=== PATIENT | female | born 1935 | race Caucasian/White ===

== ENCOUNTER → 2017-06-22 | Outpatient (CLI) | payer MEDICARE | LOC: FS 11:16 | PROVIDERS: ATTEND Internal Medicine Hematology & Oncology | DX: Z08 Encounter for follow-up examination after completed treatment for malignant neoplasm (principal); Z85.3 Personal history of malignant neoplasm of breast; N18.3 Chronic kidney disease, stage 3 (moderate); Z90.12 Acquired absence of left breast and nipple; Z79.899 Other long term (current) drug therapy | CPT/HCPCS: 99213 ==

== ENCOUNTER 2018-06-21 10:20 | Outpatient (RCR) | payer MEDICARE | END 2018-07-15 | disposition home or self-care (01) | LOC: ONC 10:20 | PROVIDERS: ATTEND Internal Medicine Hematology & Oncology | DX: Z08 Encounter for follow-up examination after completed treatment for malignant neoplasm (principal); Z85.3 Personal history of malignant neoplasm of breast; E11.22 Type 2 diabetes mellitus with diabetic chronic kidney disease; N18.3 Chronic kidney disease, stage 3 (moderate); I25.10 Atherosclerotic heart disease of native coronary artery without angina pectoris; E03.9 Hypothyroidism, unspecified; E78.00 Pure hypercholesterolemia, unspecified; J45.909 Unspecified asthma, uncomplicated; Z90.12 Acquired absence of left breast and nipple; Z92.21 Personal history of antineoplastic chemotherapy; Z79.02 Long term (current) use of antithrombotics/antiplatelets; Z79.82 Long term (current) use of aspirin; Z79.899 Other long term (current) drug therapy; Z95.5 Presence of coronary angioplasty implant and graft | CPT/HCPCS: 99213 ==

== ENCOUNTER → 2019-06-23 | Outpatient (CLI) | payer MEDICARE ==
[2019-06-23 12:47] LABS: BASOPHILS % (AUTO) 1 % (0-10); EOSINOPHILS # (AUTO) 0.3 10^3/uL (0.0-0.3); EOSINOPHILS % (AUTO) 5 % (0-10); HEMATOCRIT 36 % (35-52); HEMOGLOBIN 11.7 G/DL (11.5-16.0); LYMPHOCYTES # (AUTO) 1.1 X 10^3 (1.0-4.0); LYMPHOCYTES % (AUTO) 17 % (12-44); MEAN CORPUSCULAR HEMOGLOBIN 28 PG (25-34); MEAN CORPUSCULAR HGB CONC 33 G/DL (32-36); MEAN CORPUSCULAR VOLUME 87 FL (80-99); MEAN PLATELET VOLUME 9.6 FL (7.4-10.4); MONOCYTES # (AUTO) 0.5 X 10^3 (0.0-1.0); MONOCYTES % (AUTO) 7 % (0-12); NEUTROPHILS # (AUTO) 4.4 X 10^3 (1.8-7.8); NEUTROPHILS % (AUTO) 70 % (42-75); PLATELET COUNT 269 10^3/uL (130-400); RED CELL DISTRIBUTION WIDTH 15.5 % (10.0-14.5); WHITE BLOOD COUNT 6.2 10^3/uL (4.3-11.0)
[2019-06-23 13:09] LABS: ALBUMIN 3.9 GM/DL (3.2-4.5); BILIRUBIN,TOTAL 0.3 MG/DL (0.1-1.0); CALCIUM 9.1 MG/DL (8.5-10.1); CREATININE SERUM 1.23 MG/DL (0.60-1.30)
== END ==
LOC: EDSTATUS 08-15 11:03 → LAB 12:31
PROVIDERS: ATTEND Internal Medicine Hematology & Oncology
DX: C50.919 Malignant neoplasm of unspecified site of unspecified female breast (principal)
CPT/HCPCS: 36415; 80053; 85025

== ENCOUNTER → 2019-06-23 | Outpatient (CLI) | payer MEDICARE | LOC: ONC 12:55 | PROVIDERS: ATTEND Internal Medicine Hematology & Oncology | DX: Z08 Encounter for follow-up examination after completed treatment for malignant neoplasm (principal); Z85.3 Personal history of malignant neoplasm of breast; E11.22 Type 2 diabetes mellitus with diabetic chronic kidney disease; N18.3 Chronic kidney disease, stage 3 (moderate); I25.10 Atherosclerotic heart disease of native coronary artery without angina pectoris; E03.9 Hypothyroidism, unspecified; E78.00 Pure hypercholesterolemia, unspecified; J45.909 Unspecified asthma, uncomplicated; Z90.12 Acquired absence of left breast and nipple; Z92.21 Personal history of antineoplastic chemotherapy; Z79.02 Long term (current) use of antithrombotics/antiplatelets; Z79.82 Long term (current) use of aspirin; Z79.899 Other long term (current) drug therapy; Z95.5 Presence of coronary angioplasty implant and graft | CPT/HCPCS: 99213 ==

== ENCOUNTER 2019-08-26 13:20 | Emergency (ER) | payer MEDICARE ==
[~2019-08-26] VITALS: Ht 160 cm; Wt 77.0 kg
[2019-08-26] MEDS ORDERED: TETANUS,DIPTH,PERTUSS P/F (BOOSTRIX) 0.5 ML VIAL IM ONE (14:15)
--- NOTE | 2019-08-26 14:25 | ED Lower Extremity ---
General Chief Complaint: Lower Extremity Stated Complaint: R ANKLE PAIN Nursing Triage Note: AMBULATE TO TRIAGE WITH C/O RIGHT ANKLE PAIN. PT FELL COMING OUT OF THE CASINO AND TWISTED ANKLE. PT ALSO HAS ABRASIONS TO BOTH THUMBS. Nursing Sepsis Screen: No Definite Risk Source: patient Exam Limitations: no limitations History of Present Illness Date Seen by Provider: Aug 26, 2019 Time Seen by Provider: 14:22 Initial Comments To ER with right lateral ankle pain. She twisted the ankle causing a fall while coming [place] of the [place]. She has an abrasion to the pad of each thumb. Tetanus status is unknown. No other injury did not hit her head. Onset: just prior to arrival Severity: moderate Pain/Injury Location: right ankle Method of Injury: fell Modifying Factors: Worse With Movement Allergies and Home Medications Allergies Coded Allergies: No Known Drug Allergies (Unverified , 08/26/19) Patient Home Medication List Home Medication List Reviewed: Yes Review of Systems Constitutional: see HPI EENTM: see HPI Respiratory: no symptoms reported Cardiovascular: no symptoms reported Genitourinary: no symptoms reported Musculoskeletal: see HPI Skin: no symptoms reported Psychiatric/Neurological: No Symptoms Reported Past Hootfxa-Srfcff-Zsozmz Hx Patient Social History Alcohol Use: Denies Use Recreational Drug Use: No Smoking Status: Former Smoker Type Used: Cigars Former Smoker, Quit: Aug 24, 1999 2nd Hand Smoke Exposure: No Recent Foreign Travel: No Contact w/Someone Who Travel: No Recent Infectious Disease Expo: No Recent Hopitalizations: No Physical Abuse: No Sexual Abuse: No Mistreated: No Fear: No Seasonal Allergies Seasonal Allergies: No Past Medical History Surgeries: Yes (BREAST REMOVED DUE TO CANCER) Adenoidectomy, Thyroidectomy, Tonsillectomy Respiratory: Yes Asthma Cardiac: Yes Coronary Artery Disease, High Cholesterol, Hypertension Neurological: No : No Genitourinary: No Gastrointestinal: Yes Polyps Musculoskeletal: No Endocrine: Yes Diabetes, Non-Insulin dep HEENT: No Loss of Vision: Denies Hearing Impairment: Denies Cancer: Yes Breast Did You Recieve Any Treatments: Yes What Type of Treatment Did You: Chemotherapy LEFT MASTECTOMY Psychosocial: No Integumentary: No Blood Disorders: No Physical Exam Vital Signs Vital Signs - First Documented 08/26/19 13:33 Temp 36.5 Pulse 67 B/P (MAP) 173/87 (115) Pulse Ox 99 O2 Delivery Room Air Capillary Refill : Less Than 3 Seconds Height, Weight, BMI Height: '" Weight: lbs. oz. kg; 30.00 BMI Method: General Appearance: WD/WN, no apparent distress Respiratory: no respiratory distress, no accessory muscle use Hips: bilateral hip non-tender, bilateral hip normal inspection, bilateral hip normal range of motion Legs: bilateral leg non-tender, bilateral leg normal inspection, bilateral leg normal range of motion Knees: bilateral knee non-tender, bilateral knee normal inspection, bilateral knee normal range of motion Ankles: right ankle pain, right ankle soft tissue tenderness, right ankle swelling (over the lateral malleolus.) Feet: bilateral foot non-tender, bilateral foot normal inspection, bilateral foot normal range of motion Neurologic/Psychiatric: alert, normal mood/affect, oriented x 3 Skin: normal color, warm/dry No pain or tenderness along the fourth or fifth metatarsals only pain over the lateral malleolus. No ecchymosis. Small superficial abrasion over the pad of the thumb, full flexion and extension abilities at the IP joint bilaterally. Progress/Results/Core Measures Results/Orders My Orders Orders - SUSANNA MIR APRN Dipht,Pertuss(Acell),Tet Adult (Boostrix (08/26/19 14:15) Ankle, Right, 3 Views (08/26/19 14:02) Medications Given in ED Current Medications Medications Dose Ordered Sig/Orestes Route Start Time Stop Time Status Last Admin Dose Admin Diphtheria/ Tetanus/Acell Pertussis 0.5 ml ONCE ONCE IM 08/26/19 14:15 08/26/19 14:16 DC 08/26/19 14:21 0.5 ML Vital Signs/I&O 08/26/19 13:33 Temp 36.5 Pulse 67 B/P (MAP) 173/87 (115) Pulse Ox 99 O2 Delivery Room Air Blood Pressure Mean: 115 Departure Communication (Admissions) Stirrup splint to right ankle Impression Primary Impression: Sprain and strain of ankle Additional Impressions: Abrasion Fracture of distal fibula Disposition: HOME, SELF-CARE Condition: Stable Departure-Patient Inst. Decision time for Depature: 14:24 Referrals: GREG LION MD (PCP/Family) Primary Care Physician Patient Instructions: Ankle Sprain (DC) Add. Discharge Instructions: 1. Return to ER for any concerns 2. Go home and elevate the foot as much as possible for the rest of today. Ice pack to the area Tylenol and ibuprofen for pain control. SUSANNA MIR APRN Aug 26, 2019 14:25
--- NOTE | 2019-08-26 14:43 | Diagnostic Imaging Report ---
Clinical indications: Patient tripped today. Patient's pain and swelling to right ankle. Exam: X-ray of the right ankle, 3 views. Comparison: None. Findings: There is a nondisplaced fracture involving the distal aspect of the lateral malleolus. There are calcifications seen distal to the lateral malleolus which may be acute or chronic. There is swelling adjacent to the lateral malleolus. There is a chronic calcification seen distal to the medial malleolar region. Ankle mortise and syndesmotic joints unremarkable. Hypertrophic calcaneal spurs are noted. Impression: 1: There is a nondisplaced fracture of the lateral malleolus. There is a small calcification seen distal to the lateral malleolus which may be chronic or acute. There is soft tissue swelling adjacent to the ankle. 2: There is a small chronic appearing calcification seen distal to the medial malleolus. Dictated by: Dictated on workstation # [id number]
[2019-08-26 14:58] VITALS: BP 119/70
== END 2019-08-26 14:58 | disposition home or self-care (01) ==
LOC: EDUNIT# 13:20 → ER 13:22
DX: S82.831A Other fracture of upper and lower end of right fibula, initial encounter for closed fracture (principal); S93.401A Sprain of unspecified ligament of right ankle, initial encounter; S60.312A Abrasion of left thumb, initial encounter; S60.311A Abrasion of right thumb, initial encounter; I10 Essential (primary) hypertension; E11.9 Type 2 diabetes mellitus without complications; I25.10 Atherosclerotic heart disease of native coronary artery without angina pectoris; E78.00 Pure hypercholesterolemia, unspecified; J45.909 Unspecified asthma, uncomplicated; Z85.3 Personal history of malignant neoplasm of breast; Z90.12 Acquired absence of left breast and nipple; Z87.891 Personal history of nicotine dependence; Z90.89 Acquired absence of other organs; W01.0XXA Fall on same level from slipping, tripping and stumbling without subsequent striking against object, initial encounter; Y92.59 Other trade areas as the place of occurrence of the external cause
CPT/HCPCS: 73610; 90471; 90715

== ENCOUNTER → 2020-07-17 | Outpatient (CLI) | payer MEDICARE ==
[2020-07-17 10:41] LABS: BASOPHILS % (AUTO) 1 % (0-10); EOSINOPHILS # (AUTO) 0.2 10^3/uL (0.0-0.3); EOSINOPHILS % (AUTO) 4 % (0-10); HEMATOCRIT 39 % (35-52); HEMOGLOBIN 12.4 G/DL (11.5-16.0); LYMPHOCYTES # (AUTO) 1.2 X 10^3 (1.0-4.0); LYMPHOCYTES % (AUTO) 21 % (12-44); MEAN CORPUSCULAR HEMOGLOBIN 29 PG (25-34); MEAN CORPUSCULAR HGB CONC 32 G/DL (32-36); MEAN CORPUSCULAR VOLUME 91 FL (80-99); MEAN PLATELET VOLUME 10.8 FL (7.4-10.4); MONOCYTES # (AUTO) 0.4 X 10^3 (0.0-1.0); MONOCYTES % (AUTO) 7 % (0-12); NEUTROPHILS # (AUTO) 3.9 X 10^3 (1.8-7.8); NEUTROPHILS % (AUTO) 68 % (42-75); PLATELET COUNT 229 10^3/uL (130-400); WHITE BLOOD COUNT 5.8 10^3/uL (4.3-11.0)
[2020-07-17 11:09] LABS: ALBUMIN 4.1 GM/DL (3.2-4.5); BILIRUBIN,TOTAL 0.5 MG/DL (0.1-1.0); CALCIUM 9.5 MG/DL (8.5-10.1); CREATININE SERUM 1.36 MG/DL (0.60-1.30); POTASSIUM 4.5 MMOL/L (3.6-5.0)
== END ==
LOC: ONC 10:24
PROVIDERS: ATTEND Internal Medicine Hematology & Oncology
DX: C50.912 Malignant neoplasm of unspecified site of left female breast (principal); I25.810 Atherosclerosis of coronary artery bypass graft(s) without angina pectoris; E04.8 Other specified nontoxic goiter; N18.2 Chronic kidney disease, stage 2 (mild); I82.621 Acute embolism and thrombosis of deep veins of right upper extremity; Z95.1 Presence of aortocoronary bypass graft; Z92.21 Personal history of antineoplastic chemotherapy; Z90.12 Acquired absence of left breast and nipple; Z17.0 Estrogen receptor positive status [ER+]; Z79.01 Long term (current) use of anticoagulants
CPT/HCPCS: 80053; 85025; G0463; 99213

== ENCOUNTER → 2021-05-27 | Outpatient (CLI) | payer MEDICARE ==
--- NOTE | 2021-05-27 17:17 | Diagnostic Imaging Report ---
INDICATION: Pulmonary nodules. TECHNIQUE: Serum blood glucose level at the time of injection is 152 mg/dL. Patient was administered 13.6 mCi F-18 FDG intravenously in the right hand and PET imaging was performed from the top of the skull to mid thighs. Noncontrast CT was also performed for attenuation correction and anatomic correlation. COMPARISON: Comparison is made with prior PET study from 12/17/2015. FINDINGS: There is symmetric activity throughout the brain. Physiologic activity in the soft tissues of the neck is noted. No mediastinal or hilar hypermetabolism is identified. A noncalcified mass in the left lower lobe is noted. This shows low-level activity less than 3 however the lesion has increased in size, now measuring 18 mm compared with 11 mm on study from 2016. Physiologic activity throughout the GI and tracts of the abdomen and pelvis is noted. There is diffuse colonic diverticulosis present but no suspicious hypermetabolism. IMPRESSION: Enlarging mass in the left lower lobe when compared with exam from 2016. This shows low-level activity for FDG but is suspicious for small lung neoplasm due to increasing size. Lesion would likely be amenable to percutaneous biopsy. Dictated by: Dictated on workstation # [id number]
== END ==
LOC: RAD 12:00
PROVIDERS: ATTEND Internal Medicine Hematology & Oncology
DX: R91.8 Other nonspecific abnormal finding of lung field (principal)
CPT/HCPCS: 78815; A9552

== ENCOUNTER → 2021-05-29 | Outpatient (CLI) | payer MEDICARE | LOC: ONC 09:22 | PROVIDERS: ATTEND Internal Medicine Hematology & Oncology | DX: C50.912 Malignant neoplasm of unspecified site of left female breast (principal); I25.10 Atherosclerotic heart disease of native coronary artery without angina pectoris; E11.22 Type 2 diabetes mellitus with diabetic chronic kidney disease; N18.30 Chronic kidney disease, stage 3 unspecified; E78.00 Pure hypercholesterolemia, unspecified; E03.9 Hypothyroidism, unspecified; R91.8 Other nonspecific abnormal finding of lung field; Z90.12 Acquired absence of left breast and nipple; Z98.890 Other specified postprocedural states; Z92.21 Personal history of antineoplastic chemotherapy | CPT/HCPCS: 99213 ==

== ENCOUNTER → 2021-06-09 | Outpatient (CLI) | payer MEDICARE ==
[~2021-06-09] MED LIST: ALB0.5V INH; ATOR20TA66 PO; CA C1TAB75 PO; CETI10TA17 PO; FERR324T4 PO; FURO40TA4 PO; GLIM2TAB4 PO; LEVO100C4 PO; LEVO75CA5 PO; METO-333 PO; NITR0.4T39 SL; PANT40TA52 PO; RIVA20TA PO
[2021-06-09 09:01] LABS: HEMATOCRIT 42 % (35-52); HEMOGLOBIN 13.7 g/dL (11.5-16.0); MEAN CORPUSCULAR HEMOGLOBIN 32 pg (25-34); MEAN CORPUSCULAR HGB CONC 33 g/dL (32-36); MEAN CORPUSCULAR VOLUME 98 fL (80-99); MEAN PLATELET VOLUME 10.7 fL (9.0-12.2); PLATELET COUNT 203 10^3/uL (130-400); WHITE BLOOD COUNT 4.9 10^3/uL (4.3-11.0)
[2021-06-09 09:17] LABS: INR 0.9 (0.8-1.4)
== END ==
LOC: LAB 08:45
PROVIDERS: ATTEND Internal Medicine Hematology & Oncology
DX: R91.1 Solitary pulmonary nodule (principal)
CPT/HCPCS: 36415; 82947; 85027; 85610; 85730

== ENCOUNTER 2021-06-16 11:06 | Outpatient (CLI) | payer MEDICARE ==
[2021-06-09 08:35] VITALS: BP 151/85
[2021-06-09 09:15] VITALS: BP 151/85
[~2021-06-16] VITALS: Ht 162.5 cm; Wt 78.6 kg
[2021-06-16] VITALS (16 sets, daily range): BP systolic 140–165; BP diastolic 73–98
[~2021-06-16 11:06] MED LIST changes: +LIDOCAINE 1% INJ 20 ML 20 ML VIAL INJ ONE; +MIDAZOLAM 2 MG/2 ML (VERSED) VIAL IVP ONE; +NS IV 1000 ML 1,000 ML IV STA; +fentaNYL INJ 100 MCG/2 ML AMP IVP ONE
[2021-06-16] MEDS ORDERED: NS IV 1000 ML 1,000 ML IV STA (11:11)
[2021-06-16] MEDS ORDERED: fentaNYL INJ 100 MCG/2 ML AMP IVP ONE (11:15)
[2021-06-16] MEDS ORDERED: LIDOCAINE 1% INJ 20 ML 20 ML VIAL INJ ONE (11:15)
[2021-06-16] MEDS ORDERED: MIDAZOLAM 2 MG/2 ML (VERSED) VIAL IVP ONE (11:15)
[2021-06-16 11:48] LABS: BASOPHILS % (AUTO) 1 % (0-10); EOSINOPHILS # (AUTO) 0.2 10^3/uL (0.0-0.3); EOSINOPHILS % (AUTO) 4 % (0-10); HEMATOCRIT 42 % (35-52); HEMOGLOBIN 13.9 g/dL (11.5-16.0); LYMPHOCYTES # (AUTO) 0.9 10^3/uL (1.0-4.0); LYMPHOCYTES % (AUTO) 19 % (12-44); MEAN CORPUSCULAR HEMOGLOBIN 32 pg (25-34); MEAN CORPUSCULAR HGB CONC 33 g/dL (32-36); MEAN CORPUSCULAR VOLUME 96 fL (80-99); MEAN PLATELET VOLUME 10.8 fL (9.0-12.2); MONOCYTES # (AUTO) 0.4 10^3/uL (0.0-1.0); MONOCYTES % (AUTO) 9 % (0-12); NEUTROPHILS # (AUTO) 3.1 10^3/uL (1.8-7.8); NEUTROPHILS % (AUTO) 68 % (42-75); PLATELET COUNT 203 10^3/uL (130-400); WHITE BLOOD COUNT 4.6 10^3/uL (4.3-11.0)
[2021-06-16 11:59] LABS: PROTHROMBIN TIME PATIENT 13.6 SEC (12.2-14.7)
--- NOTE | 2021-06-16 14:07 | Diagnostic Imaging Report ---
INDICATION: Left lung nodule, status post CT-guided biopsy. TIME OF EXAM: 1:59 PM. COMPARISON: Correlation is made with the prior chest from 10/26/2010. FINDINGS: There is a very small left apical pneumothorax measuring a thickness of approximately 19 mm. The lungs are clear. No significant effusion is seen. There are changes of median sternotomy. IMPRESSION: Small left apical pneumothorax, status post left lung biopsy. A repeat chest x-ray will be performed in 2 hours to confirm stability. Dictated by: Dictated on workstation # [id number]
[2021-06-16] MEDS ORDERED: HYDROcodone/APAP 5 MG/325 MG (LORTAB) TAB PO PRN (14:15)
--- NOTE | 2021-06-16 14:18 | Diagnostic Imaging Report ---
INDICATION: Left lung mass. Patient presents for CT-guided biopsy. TECHNIQUE: All CT scans use one or more of the following dose optimizing techniques: automated exposure control, MA and/or KvP adjustment based on patient size and exam type or iterative reconstruction. Patient brought to the CT suite placed on table right-sided antecubitus position. Axial imaging through the chest was performed. The lower left posterior hemithorax was prepped and draped usual sterile fashion. Small amount of 1% lidocaine was utilized for local anesthesia. Study was performed utilizing conscious sedation with radiology nursing and constant patient monitoring. Patient was given total of 50 mg of fentanyl intravenously and 1 mg of Versed intravenously. Total procedure time was approximately 30 minutes. 18-gauge coaxial Temno needle was positioned along the upper margin of the lesion. Numerous attempts are made to biopsy it more centrally however the lesion was very difficult to access due to position immediately deep to a rib. Several core biopsies were obtained along the margin of the lesion with 18-gauge Temno needle. Needle was withdrawn and hemostasis was obtained. Images post procedure demonstrated a small amount of hemothorax as well as a small pneumothorax. Chest radiographs will be obtained to confirm stability. Patient tolerated the procedure well and left the department in stable condition. IMPRESSION: CT-guided biopsy of left lower lobe pulmonary mass, as described above. Conscious sedation was utilized. Pathology results are currently pending. Dictated by: Dictated on workstation # [id number]
--- NOTE | 2021-06-16 16:38 | Diagnostic Imaging Report ---
INDICATION: Left lung biopsy. TIME OF EXAM: 3:44 PM CORRELATION is made with prior chest from earlier same day. Changes of median sternotomy are noted. There is a small left apical pneumothorax, stable since earlier today. Lungs are clear. There is no effusion. IMPRESSION: Stable left apical pneumothorax when compared with earlier today. Dictated by: Dictated on workstation # [id number]
--- NOTE | 2021-06-16 16:38 | Pre-Op Note & Conscious Sedat ---
Pre-Operative Progress Note H&P Reviewed The H&P was reviewed, patient examined and no changes noted. Date H&P Reviewed: Jun 16, 2021 Time H&P Reviewed: 12:00 Pre-Op Diagnosis: lung nodule Conscious Sedation Pre-Proced Time 12:00 ASA Score 2 For ASA 3 and 4: Consider anesthesia and medical clearance. Also, for patients with a history of failed moderate sedation consider anesthesia. Airway Lungs Heart ASA score ASA 1: a normal healthy patient ASA 2: a patient with a mild systemic disease (mid diabetes, controlled hypertension, obesity ASA 3: a patient with a severe systemic disease that limits activity (angina, COPD, prior Myocardial infarction) ASA 4: a patient with an incapacitating disease that is a constant threat to life (CHF, renal failure) ASA 5: a moribund patient not expected to survive 24 hrs. (ruptured aneurysm) ASA 6: a declared brain- patient whose organs are being harvested. For emergent operations, add the letter E after the classification Mallampati Classification Grade 2 Sedation Plan Analgesia, Amnesia, Plan communicated to team members, Discussed options with patient/fam, Discussed risks with patient/fam The patient is an appropriate candidate to undergo the planned procedure, sedation, and anesthesia. The patient immediately re-assessed prior to indication. SALAZAR VILLARREAL MD Jun 16, 2021 16:38
== END 2021-06-16 16:10 | disposition home or self-care (01) ==
LOC: SDC 11:06
PROVIDERS: ATTEND Internal Medicine Hematology & Oncology
DX: C50.912 Malignant neoplasm of unspecified site of left female breast (principal); R91.1 Solitary pulmonary nodule; R79.1 Abnormal coagulation profile; Z90.12 Acquired absence of left breast and nipple; Z92.21 Personal history of antineoplastic chemotherapy
CPT/HCPCS: 36415; 71045; 77012; 82947; 85025; 85027; 85610; 85730; 88305; 88342; 88344; 99156; 99157

== ENCOUNTER 2021-06-26 09:38 | Outpatient (RCR) | payer MEDICARE ==
[~2021-06-26 09:38] MED LIST changes: -LIDOCAINE 1% INJ 20 ML 20 ML VIAL INJ ONE; -MIDAZOLAM 2 MG/2 ML (VERSED) VIAL IVP ONE; -NS IV 1000 ML 1,000 ML IV STA; -fentaNYL INJ 100 MCG/2 ML AMP IVP ONE
== END 2021-09-24 | disposition home or self-care (01) ==
LOC: ONC 09:38
PROVIDERS: ATTEND Internal Medicine Hematology & Oncology
DX: C50.912 Malignant neoplasm of unspecified site of left female breast (principal); E04.9 Nontoxic goiter, unspecified; R91.8 Other nonspecific abnormal finding of lung field; E11.9 Type 2 diabetes mellitus without complications; N18.30 Chronic kidney disease, stage 3 unspecified; E78.00 Pure hypercholesterolemia, unspecified; Z92.21 Personal history of antineoplastic chemotherapy
CPT/HCPCS: 99213

== ENCOUNTER 2023-04-10 12:01 | Emergency (ER) | payer MEDICARE ==
[~2023-04-10] VITALS: Ht 160 cm; Wt 72.5 kg
[2023-04-10 12:57] LABS: BASOPHILS % (AUTO) 0 % (0-10); EOSINOPHILS % (AUTO) 0 % (0-10); HEMATOCRIT 37 % (35-52); HEMOGLOBIN 12.1 g/dL (11.5-16.0); LYMPHOCYTES # (AUTO) 0.3 10^3/uL (1.0-4.0); LYMPHOCYTES % (AUTO) 2 % (12-44); MEAN CORPUSCULAR HEMOGLOBIN 30 pg (25-34); MEAN CORPUSCULAR HGB CONC 33 g/dL (32-36); MEAN CORPUSCULAR VOLUME 90 fL (80-99); MEAN PLATELET VOLUME 9.6 fL (9.0-12.2); MONOCYTES # (AUTO) 0.3 10^3/uL (0.0-1.0); MONOCYTES % (AUTO) 3 % (0-12); NEUTROPHILS # (AUTO) 10.2 10^3/uL (1.8-7.8); NEUTROPHILS % (AUTO) 94 % (42-75); PLATELET COUNT 400 10^3/uL (130-400); WHITE BLOOD COUNT 10.9 10^3/uL (4.3-11.0)
--- NOTE | 2023-04-10 12:58 | ED Respiratory ---
General Chief Complaint: Respiratory Problems Stated Complaint: SOA Nursing Triage Note: PT AMB TO [facility] 9 WITH GRANDDAUGHTER WITH COMPLAINT OF SOA AND LEFT SIDE RIB PAIN. HAS TAKEN MULTIPLE ROUNDS OF ANTIBIOTICS FOR PNEUMONIA. WAS RECENTLY ADMITTED TO [facility] OVERNIGHT AND IS NOT FEELING ANY BETTER. HR HAS BEEN HIGH AT HOME AND SHE HAS NOT REQUIRED HER BLOOD PRESSURE MEDS. WAS TOLD SHE HAS A LUNG NODULE. HX OF BREAST CANCER. Source: patient, family Exam Limitations: no limitations History of Present Illness Date Seen by Provider: April 10, 2023 Time Seen by Provider: 12:32 Initial Comments 87-year-old female presents to the ER with complaints of shortness of air, weakness, and right lower rib pain for the last 3 weeks. She was seen by her primary care provider who did a chest and abdomen x-ray and told her she had a lot of gas. He started her on MiraLAX, states she has been having normal bowel movements since then. She was still not feeling well so went to [facility] 2 weeks ago and was diagnosed with pneumonia and discharged with antibiotics. She was seen there again on 04/03 and admitted for pneumonia and IV antibiotics. She was discharged the following day and saw her primary care provider. He wanted her to be on steroids instead of antibiotics. Patient reports she has been taking t he steroid, but she did not start out at the recommended dose of 40 mg a day for 3 days. She started out with 30 mg a day for 3 days, is currently on 20 mg a day which she has taken for 2 days now. Correa found a pulmonary nodule during her visit, she has since had a PET scan, and is supposed to have a biopsy this Wednesday. Patient states she does not feel well, and does not want to go to this appointment due to not feeling well. She complains of weakness, no energy, she reports she cannot even walk to the bathroom without getting fatigued and short of breath. She reports that she has completed 4 rounds of antibiotics for this pneumonia. She states the pain in her right side initially started lower moved up to the right ribs and into her left shoulder, states the pain is only located in her right lower ribs at this time. Right lower ribs are tender to palpation. Patient denies any injury to her ribs. Past medical history includes coronary artery disease, hypertension, diabetes, hypothyroidism, breast cancer, pleural effusion. She has had 4 bypasses, and mastectomy. Her cancer treatment was in 1998. Allergies and Home Medications Allergies Coded Allergies: ciprofloxacin (Verified Allergy, Unknown, 04/10/23) iodine (Verified Allergy, Unknown, 04/10/23) levofloxacin (Verified Allergy, Unknown, 04/10/23) Patient Home Medication List Home Medication List Reviewed: Yes Albuterol Sulfate (Albuterol Sulfate) 2.5 Mg/0.5 Ml Vial.neb, 2.5 MG INH Q6H, (Reported) Entered as Reported by: CHINO ROTH on 06/09/21945 Atorvastatin Calcium (Atorvastatin Calcium) 20 Mg Tablet, 20 MG PO HS, (Reported) Entered as Reported by: CHINO ROTH on 06/09/21945 Ca Carbonate/Vitamin D3/Vit K (Calcium + D Soft Chewable Tab) 1 Each Tab.chew, 1 EACH PO BID, (Reported) Entered as Reported by: CHINO ROTH on 06/09/21945 Cetirizine HCl (Cetirizine HCl) 10 Mg Tablet, 10 MG PO DAILY, (Reported) Entered as Reported by: CHINO ROTH on 06/09/21945 Ferrous Sulfate (Ferrous Sulfate) 324 Mg Tablet.dr, 324 MG PO BID, (Reported) Entered as Reported by: CHINO ROTH on 06/09/21945 Furosemide (Furosemide) 40 Mg Tablet, 40 MG PO DAILY, (Reported) Entered as Reported by: CHINO ROTH on 06/09/21945 Furosemide (Lasix) 40 Mg Tablet, 40 MG PO DAILY Prescribed by: Lily Knapp on 04/10/23 1449 Glimepiride (Glimepiride) 2 Mg Tablet, 2 MG PO BID, (Reported) Entered as Reported by: CHINO ROTH on 06/09/21945 Levothyroxine Sodium (Levothyroxine) 100 Mcg Capsule, 100 MCG PO UD, (Reported) Entered as Reported by: CHINO ROTH on 06/09/21945 Levothyroxine Sodium (Levothyroxine) 75 Mcg Capsule, 75 MCG PO UD, (Reported) Entered as Reported by: CHINO ROTH on 06/09/21945 Metoprolol Tartrate (Metoprolol Tartrate) 25 Mg Tablet, 25 MG PO BID, (Reported) Entered as Reported by: CHINO ROTH on 06/09/21952 Nitroglycerin (Nitroglycerin) 0.4 Mg Tab.subl, 0.4 MG SL UD PRN for CHEST PAIN, (Reported) Entered as Reported by: CHINO ROTH on 06/09/21952 Pantoprazole Sodium (Pantoprazole Sodium) 40 Mg Tablet.dr, 40 MG PO DAILY, (Reported) Entered as Reported by: CHINO ROTH on 06/09/21952 Rivaroxaban (Xarelto) 20 Mg Tablet, 20 MG PO DAILY, (Reported) Entered as Reported by: CHINO ROTH on 06/09/21952 Review of Systems Review of Systems Constitutional: see HPI Past Fonteff-Oqhyld-Jsjkrk Hx Patient Social History Tobacco Use?: No Use of E-Cig and/or Vaping dev: No Substance use?: No Alcohol Use?: No Pt feels they are or have been: No Seasonal Allergies Seasonal Allergies: No Past Medical History Surgeries: Yes (BREAST REMOVED DUE TO CANCER) Adenoidectomy, Thyroidectomy, Tonsillectomy Respiratory: Yes Asthma Cardiac: Yes Coronary Artery Disease, High Cholesterol, Hypertension Neurological: No Genitourinary: No Gastrointestinal: Yes Polyps Musculoskeletal: No Endocrine: Yes Diabetes, Non-Insulin dep HEENT: No Loss of Vision: Denies Hearing Impairment: Denies Cancer: Yes Breast Did You Recieve Any Treatments: Yes What Type of Treatment Did You: Chemotherapy Psychosocial: No Integumentary: No Blood Disorders: No Physical Exam Vital Signs - First Documented 04/10/23 12:20 Temp 36.3 Pulse 91 Resp 18 B/P (MAP) 138/96 (110) Pulse Ox 97 O2 Delivery Room Air Capillary Refill : Less Than 3 Seconds Height: '" Weight: lbs. oz. kg; 28.00 BMI Method: General Appearance: WD/WN, no apparent distress Neck: supple, normal inspection Respiratory: chest non-tender, no respiratory distress, no accessory muscle use, decreased breath sounds, other (Tenderness to palpation of right lower rib) Cardiovascular: regular rate, rhythm Extremities: pedal edema, other (Nonpitting lower extremity edema, left leg wo rse than right) Neurologic/Psychiatric: alert, normal mood/affect Skin: normal color, warm/dry Progress/Results/Core Measures Suspected Sepsis SIRS Temperature: Pulse: 91 Respiratory Rate: 18 Laboratory Tests 04/10/23 12:32: White Blood Count 10.9 Blood Pressure 138 /96 Mean: 110 Laboratory Tests 04/10/23 12:32: Creatinine 1.07, Platelet Count 400, Total Bilirubin 0.5 Results/Orders Lab Results Laboratory Tests Test 04/10/23 12:32 Range/Units White Blood Count 10.9 4.3-11.0 10^3/uL Red Blood Count 4.08 3.80-5.11 10^6/uL Hemoglobin 12.1 11.5-16.0 g/dL Hematocrit 37 35-52 % Mean Corpuscular Volume 90 80-99 fL Mean Corpuscular Hemoglobin 30 25-34 pg Mean Corpuscular Hemoglobin Concent 33 32-36 g/dL Red Cell Distribution Width 14.6 H 10.0-14.5 % Platelet Count 400 130-400 10^3/uL Mean Platelet Volume 9.6 9.0-12.2 fL Immature Granulocyte % (Auto) 1 % Neutrophils (%) (Auto) 94 H 42-75 % Lymphocytes (%) (Auto) 2 L 12-44 % Monocytes (%) (Auto) 3 0-12 % Eosinophils (%) (Auto) 0 0-10 % Basophils (%) (Auto) 0 0-10 % Neutrophils # (Auto) 10.2 H 1.8-7.8 10^3/uL Lymphocytes # (Auto) 0.3 L 1.0-4.0 10^3/uL Monocytes # (Auto) 0.3 0.0-1.0 10^3/uL Eosinophils # (Auto) 0.0 0.0-0.3 10^3/uL Basophils # (Auto) 0.0 0.0-0.1 10^3/uL Immature Granulocyte # (Auto) 0.1 0.0-0.1 10^3/uL Neutrophils % (Manual) 94 % Lymphocytes % (Manual) 2 % Monocytes % (Manual) 2 % Eosinophils % (Manual) 0 % Basophils % (Manual) 0 % Band Neutrophils 2 % Blood Morphology Comment NORMAL D-Dimer 3.73 H 0.00-0.49 UG/ML Sodium Level 134 L 135-145 MMOL/L Potassium Level 4.9 3.6-5.0 MMOL/L Chloride Level 100 98-107 MMOL/L Carbon Dioxide Level 22 21-32 MMOL/L Anion Gap 12 5-14 MMOL/L Blood Urea Nitrogen 23 H 7-18 MG/DL Creatinine 1.07 0.60-1.30 MG/DL Estimat Glomerular Filtration Rate 51 BUN/Creatinine Ratio 21 Glucose Level 226 H 70-105 MG/DL Calcium Level 9.6 8.5-10.1 MG/DL Corrected Calcium 9.7 8.5-10.1 MG/DL Magnesium Level 2.1 1.6-2.4 MG/DL Total Bilirubin 0.5 0.1-1.0 MG/DL Aspartate Amino Transf (AST/SGOT) 23 5-34 U/L Alanine Aminotransferase (ALT/SGPT) 26 0-55 U/L Alkaline Phosphatase 106 40-136 U/L B-Type Natriuretic Peptide 557.8 H <100.0 PG/ML Total Protein 7.3 6.4-8.2 GM/DL Albumin 3.9 3.2-4.5 GM/DL My Orders Orders - LILY KNAPP APRN Cbc With Automated Diff (04/10/23 12:51) Comprehensive Metabolic Panel (04/10/23 12:51) Bnp Vladimir (04/10/23 12:51) Fibrin Degradation Products (04/10/23 12:51) Magnesium (04/10/23 12:51) Ed Iv/Invasive Line Start (04/10/23 12:51) Monitor-Rhythm Ecg Trace Only (04/10/23 12:51) Ekg Tracing (04/10/23 12:59) Manual Differential (04/10/23 12:32) Chest Pa/Lat (2 View) (04/10/23 13:18) Ns Iv 500 Ml (Sodium Chloride 0.9%) (04/10/23 14:00) Furosemide Tablet (Lasix Tablet) (04/10/23 14:15) Furosemide Tablet (Lasix Tablet) (04/10/23 14:38) Medications Given in ED Vital Signs/I&O 04/10/23 04/10/23 12:20 14:47 Temp 36.3 Pulse 91 87 Resp 18 16 B/P (MAP) 138/96 (110) 149/107 Pulse Ox 97 96 O2 Delivery Room Air Room Air Capillary Refill : Less Than 3 Seconds Blood Pressure Mean: 110 Progress Note : Progress Note Patient seen and evaluated, resting comfortably in bed, no acute distress. Based on exam and symptoms, work-up initiated including CBC, CMP, BNP, D-dimer, magnesium, chest x-ray. Labs reviewed. CBC shows normal WBC. Elevated neutrophil percentage 94%. Patient has been on status. CMP shows slightly decreased sodium 134, elevated BUN 23, creatinine 1.07, GFR 51. Frieman show BUN of 13, creatinine of 0.7, GFR of 85. Glucose elevated 226. BNP elevated 557.8. 500 mils of IV fluids ordered for decreased kidney function. D-dimer found to be elevated at 3.73. Results discussed with patient. Informed that we should do a CT angio to assess for pulmonary embolism due to elevated D-dimer and shortness of air. Patient states she is anaphylactically allergic to contrast dye. I called and spoke with Dr. Mock, hospitalist, to see if he would admit for a VQ scan. After discussion with him, he believes that patient's symptoms are likely related to fluid overload rather than a PE. Patient is not hypoxic, does not appear short of breath, is not tachycardic and has not taken her nebivolol today. She is not having any hemoptysis. Patient did stop her blood thinners 3 days ago because she supposed to have a biopsy done on Wednesday. She denies any increase in her shortness of air over the last 3 days. She does have bilateral lower extremity nonpitting edema. Left is larger than the right, patient states it is always this way since she had her CABG. No localized tenderness along the deep venous system. Wells score for DVT 1. Wells score for PE is 0. He does not think that she requires admission. He recommends discharging with oral Lasix to help with fluid overload. I discussed this with patient. She is agreeable to discharge plan. We discussed the option of obtaining a VQ scan while in the ER. Patient states that she does not want to wait to do that. She is supposed to take Lovenox injection today, and she agrees that she will do this when she gets home. Patient given strict return precautions. Patient is comfortable going home at this time. Extensive education and return precautions provided. Extensive education provided to family as well. They are also agreeable to patient going home at this time. ECG Initial ECG Impression Date: April 10, 2023 Initial ECG Impression Time: 14:21 Initial ECG Rate: 84 Initial ECG Rhythm: Normal Sinus, PVC Initial ECG Intervals: Normal Initial ECG Comparisson: No Previous ECG Available Diagnostic Imaging Diagonstic Imaging: Xray Plain Films/CT/US/NM/MRI: chest Comments [facility] [place], [place] NAME: CHARLENE TRAN I [facility] REC#: [id number] PT STATUS: DEP ER : 1935 PHYSICIAN: LILY KNAPP APRN ADMIT DATE: 04/10/23/ER Signed Date of Exam:04/10/23 CHEST PA/LAT (2 VIEW) Indication: Shortness of air and left rib pain. Time of Exam: 1:33 PM Comparison is made with prior chest from 06/16/2021. The heart is enlarged but stable. There are changes of median sternotomy and CABG. There appears to be some left-sided pleural fluid. There may be some infiltrate in the left base as well. Right lung is clear. Impression: Cardiomegaly and status post CABG with small left effusion and left basilar infiltrate. Dictated by: Dictated on workstation # [id number] Dict: 04/10/23 1338 Trans: 04/10/23 1500 CVB [id number] Interpreted by: SALAZAR VILLARREAL MD Electronically signed by: SALAZAR VILLARREAL MD 04/10/23 1500 Departure Impression Primary Impression: Congestive heart failure Qualified Codes: I50.9 - Heart failure, unspecified Additional Impressions: Decreased renal function Pleural effusion Disposition: 01 HOME, SELF-CARE Condition: Stable Departure-Patient Inst. Decision time for Depature: 14:28 Referrals: GREG LION MD (PCP/Family) Primary Care Physician Patient Instructions: CHF Add. Discharge Instructions: Take 40 mg of Lasix once daily for the next 3 days. Please take your Lovenox as prescribed today. Please get your lung biopsy completed. Follow-up with your primary care provider. Please return if your shortness of breath gets worse, you start coughing up blood, you develop chest pain, or any other new, concerning, or worsening symptoms. All discharge instructions reviewed with patient and/or family. Voiced understanding. Scripts Furosemide (Lasix) 40 Mg Tablet 40 MG PO DAILY for 3 Days, #3 TAB 0 Refills Prov: LILY KNAPP APRN 04/10/23 LILY KNAPP APRN April 10, 2023 12:58
[2023-04-10 13:00] LABS: ALBUMIN 3.9 GM/DL (3.2-4.5)
[2023-04-10 13:01] LABS: POTASSIUM 4.9 MMOL/L (3.6-5.0)
[2023-04-10 13:02] LABS: CALCIUM 9.6 MG/DL (8.5-10.1)
[2023-04-10 13:03] LABS: TOTAL PROTEIN 7.3 GM/DL (6.4-8.2)
[2023-04-10 13:05] LABS: BILIRUBIN,TOTAL 0.5 MG/DL (0.1-1.0)
[2023-04-10 13:07] LABS: CREATININE SERUM 1.07 MG/DL (0.60-1.30)
[2023-04-10 13:10] LABS: MAGNESIUM 2.1 MG/DL (1.6-2.4)
--- NOTE | 2023-04-10 13:44 | Diagnostic Imaging Report ---
Indication: Shortness of air and left rib pain. Time of Exam: 1:33 PM Comparison is made with prior chest from 06/16/2021. The heart is enlarged but stable. There are changes of median sternotomy and CABG. There appears to be some left-sided pleural fluid. There may be some infiltrate in the left base as well. Right lung is clear. Impression: Cardiomegaly and status post CABG with small left effusion and left basilar infiltrate. Dictated by: Dictated on workstation # [id number]
[2023-04-10 13:57] LABS: NEUTROPHILS % (MANUAL) 94 %
[2023-04-10 13:58] LABS: BAND NEUTROPHILS 2 %; BASOPHILS % (MANUAL) 0 %; EOSINOPHILS % (MANUAL) 0 %; LYMPHOCYTES % (MANUAL) 2 %; MONOCYTES % (MANUAL) 2 %; RBC MORPH NORMAL
[2023-04-10] MEDS ORDERED: NS IV 500 ML 500 ML IV ONE (14:00)
[2023-04-10] MEDS ORDERED: FUROSEMIDE 40 MG (LASIX) TAB PO ONE (14:15)
[2023-04-10] MEDS ORDERED: FURO-124 PO ×2 (14:35→14:49)
[2023-04-10] MEDS ORDERED: FUROSEMIDE 20 MG (LASIX) TAB ONE (14:38)
[2023-04-10 14:47] VITALS: BP 149/107
== END 2023-04-10 14:47 | disposition home or self-care (01) ==
LOC: EDUNIT# 12:01 → ER 12:03
DX: I11.0 Hypertensive heart disease with heart failure (principal); I50.9 Heart failure, unspecified; J90 Pleural effusion, not elsewhere classified; J18.9 Pneumonia, unspecified organism; R94.4 Abnormal results of kidney function studies; D72.828 Other elevated white blood cell count; R79.89 Other specified abnormal findings of blood chemistry; R79.0 Abnormal level of blood mineral
CPT/HCPCS: 36415; 71046; 80053; 83735; 83880; 85007; 85027; 85379; 93041

== ENCOUNTER → 2023-05-06 | Outpatient (CLI) | payer MEDICARE ==
[~2023-05-06] MED LIST changes: +ACHD5005 PO; +AMLO-251 PO; +AMOX1TAB11 PO; +BUDE10.27 IH; +CARV3.122 PO; +CLOP75TA28 PO; +FAMO20TA3 PO; +FURO-124 PO; +GLIM4TAB5 PO; +HYDR12.56 PO; +LISI20TA26 PO; +MIRT-47 PO; +NEBI5TAB11 PO; +POTA10CA44 PO; +RT-ALBUINH INH
== END | disposition home or self-care (01) ==
LOC: PREOP 16:26
PROVIDERS: ATTEND Surgery
DX: Z01.818 Encounter for other preprocedural examination (principal)

== ENCOUNTER 2023-05-07 07:17 | Day surgery (SDC) | payer MEDICARE ==
[2023-05-07] VITALS (9 sets, daily range): BP systolic 115–138; BP diastolic 62–90
[~2023-05-07] VITALS: Ht 160 cm; Wt 60.0 kg
[~2023-05-07 07:17] MED LIST changes: -ACHD5005 PO; -AMLO-251 PO; -AMOX1TAB11 PO; -BUDE10.27 IH; -CARV3.122 PO; -CLOP75TA28 PO; -FAMO20TA3 PO; -GLIM4TAB5 PO; -HYDR12.56 PO; -LISI20TA26 PO; -MIRT-47 PO; -NEBI5TAB11 PO; -POTA10CA44 PO; -RT-ALBUINH INH
[2023-05-07] MEDS ORDERED: ceFAZolin INJECTION 2,000 MG in NS (IVPB) 50 ML IV ONE (07:30)
[2023-05-07] MEDS ORDERED: LACTATED RINGERS 1,000 ML IV PRN (07:30)
[2023-05-07] MEDS ORDERED: HEParin (CENTRAL IV FLUSH) 500 UNIT/5 ML SYR ONE (07:33)
[2023-05-07] MEDS ORDERED: 0.9% SODIUM CHLORIDE PF INJ 20 ML VIAL ONE (07:33)
[2023-05-07] MEDS ORDERED: LIDOCAINE/EPI 1%-1:100,000 (XYLOCAINE) 20ML ONE (07:33)
[2023-05-07] MEDS ORDERED: PROPOFOL INJECTION 50 ML IV ONE (08:42)
--- NOTE | 2023-05-07 09:00 | Progress Note-Pre Operative ---
GEO GARCIA 05/07/23 0900: Pre-Operative Progress Note Date H&P Reviewed: May 07, 2023 Time H&P Reviewed: 08:30 History & Physical: H&P Reviewed, Patient Examed, No changes noted Pre-Operative Diagnosis: Venous Insufficiency, Hx of Breast CA GEO GARCIA DO 05/07/23 0925: Pre-Operative Progress Note Date H&P Reviewed: May 07, 2023 Time H&P Reviewed: 08:30 History & Physical: H&P Reviewed, Patient Examed, No changes noted Pre-Operative Diagnosis: venous insufficency, hx breast cancer GEO GARCIA May 07, 2023 09:00 GEO GARCIA DO May 07, 2023 09:25
[2023-05-07] MEDS ORDERED: PHENYLEPHRINE 100 MCG/ML 10 ML (ANESTHESIA) SYR ONE (09:10)
[2023-05-07] MEDS ORDERED: RT-ALBUINH INH (09:23)
[2023-05-07] MEDS ORDERED: AMOX1TAB11 PO (09:23)
[2023-05-07] MEDS ORDERED: LISI20TA26 PO (09:23)
[2023-05-07] MEDS ORDERED: CLOP75TA28 PO (09:23)
[2023-05-07] MEDS ORDERED: GLIM4TAB5 PO (09:23)
[2023-05-07] MEDS ORDERED: POTA10CA44 PO (09:23)
[2023-05-07] MEDS ORDERED: NEBI5TAB11 PO (09:23)
[2023-05-07] MEDS ORDERED: BUDE10.27 IH (09:23)
[2023-05-07] MEDS ORDERED: MIRT-47 PO (09:23)
[2023-05-07] MEDS ORDERED: FAMO20TA3 PO (09:23)
[2023-05-07] MEDS ORDERED: ACHD5005 PO (09:23)
[2023-05-07] MEDS ORDERED: CARV3.122 PO (09:23)
[2023-05-07] MEDS ORDERED: AMLO-251 PO (09:23)
[2023-05-07] MEDS ORDERED: HYDR12.56 PO (09:23)
--- NOTE | 2023-05-07 09:26 | Progress Note-Post Operative ---
Post-Operative Progess Note Surgeon (s)/Public Health Dentist (s) Surgeon GEO GARCIA DO Public Health Dentist: na Pre-Operative Diagnosis venous insufficency, hx breast cancer Post-Operative Diagnosis same Procedure & Operative Findings Date of Procedure 05/07/23 Procedure Performed/Findings PROCEDURE: Right internal jugular port placement using ultrasound guidance. COMPLICATIONS: None. INDICATIONS: The patient is a 87 year old female needing port. Patient understands the risks and benefits of port placement and wished to proceed with the procedure. Consent was signed on the chart. PROCEDURE: The patient was taken to the operating suite, was prepped and draped in the sterile fashion. A surgical pause was performed. Ultrasound was used to locate the internal jugular vein. Once located anesthetic was infiltrated above it. Using micro-access kit, the right internal vein was accessed. Dark nonpulsatile blood was withdrawn. The wire was inserted. Fluoroscopy assured proper placement. The needle was removed. The micro-access dilator was advanced over the wire and the wire was removed. The regular wire was inserted and fluoroscopy assured proper placement. The wire was then secured. Local anesthetic was used to anesthetize from the neck for tunneling down to the right chest and for pocket creation. A 15 blade scalpel was used to make an incision over the right chest. Cautery was used to dissect down to the pectoral fascia. A pocket was created with blunt dissection. The dilator sheath was then advanced over the wire under fluoroscopy and the dilator and wire were removed. The Groshong catheter was inserted through the sheath and the sheath was then removed. The Groshong wire was removed. The catheter was then tunneled to the right chest pocket. Fluoroscopy was used to cut to length and this was then attached to the port which was then placed within the pocket. The port was then accessed without difficulty. It was then flushed with saline and then heparin. The subcutaneous tissues were then reapproximated using 3-0 Vicryl. The areas were then washed and dried. Skin Affix was placed over incision. The insertion point of the neck Skin Affix was placed over the incision. The patient tolerated the procedure well without complication and was taken to recovery room in stable condition. Chest x-ray is pending. Anesthesia Type mac c local Estimated Blood Loss Estimated blood loss (mL): minimal Specimens/Packing Specimens Removed GEO Bryan DO May 07, 2023 09:26
--- NOTE | 2023-05-07 09:28 | Discharge Inst-Simple/Standard ---
Discharge Inst-Standard Patient Instructions/Follow Up Plan of Care/Instructions/FU: 2 weeks Mahendra Activity as Tolerated: No Discharge Diet: Regular Diet Other Inst to Patient Follow up Appt: Make appointment for 2 week. Instructions: No lifting greater than 10 pounds. No strenuous activity. May shower in 24 hours, no tub bath or soaking. Use incentive spirometer at home as directed. No Smoking Skin/Wound Care: You have special glue over your incision that will fall off on it's own. Ice pack on 15 min and off 30 min and repeat for first 48 hours. This reduces swelling and discomfort. Symptoms to Report: Appetite Changes, Extremity Discoloration, Numbness/Tingling, Swelling Increased, Bleeding Excessive, Eyesight Changes, Pain Increased, Urine Color Change, Constipation(Persistent), Fever over 101 degree F, Pain/Pressure in chest, Urinating Difficulty, Cough Up/Vomit Blood, Heart Beat Irreg/Pounding, Pain/Pressure in jaw, Vaginal Bleeding Increase, Cramps in feet or legs, Lightheadedness, Pain/Pressure in shoulder, Diarrhea(Persistent), Memory Changes Suddenly, Questions/Concerns, Weight gain consecutive days, Dizziness/Fainting, Nausea/Vomiting, Shortness of Breath, Weight gain over 2 pounds If questions or concerns contact your physician Or seek help at emergency department. GEO GARCIA DO May 07, 2023 09:28
--- NOTE | 2023-05-07 09:49 | Anesthesia-General Post-Op ---
MAC Patient Condition Mental Status/LOC: Same as Preop Cardiovascular: Satisfactory Nausea/Vomiting: Absent Respiratory: Satisfactory Pain: Controlled Complications: Absent Post Op Complications Complications None Follow Up Care/Instructions Patient Instructions None needed. Anesthesiology Discharge Order Discharge Order Patient is awake in PACU and doing well, no complaints, stable vital signs, no apparent adverse anesthesia problems. No complications reported per nursing. CECILLE MACEDO DO May 07, 2023 09:49
[2023-05-07] MEDS ORDERED: ONDANSETRON 4 MG/2 ML (SDV) Z0FRAN IVP PRN (10:00)
--- NOTE | 2023-05-07 10:06 | Diagnostic Imaging Report ---
Indication: Catheter placement. Findings: A right IJ catheter distal tip projects over the upper SVC. There is no pneumothorax. There is increased large left pleural effusion. Cardiomegaly increased. The right lung clear. Impression: 1. Catheter placed without pneumothorax, typically a upper SVC. 2. Increased left pleural fluid and cardiomegaly. Dictated by: Dictated on workstation # [id number]
--- NOTE | 2023-05-07 14:13 | Diagnostic Imaging Report ---
INDICATION: Port placement COMPARISON: None available. IMPRESSION: Single spot image shows right IJ Port-A-Cath with tip terminating in the mid SVC. Air Kerma is 1.59 mGy. Please see procedure report for more details. Dictated by: Dictated on workstation # [id number]
== END 2023-05-07 12:35 | disposition home or self-care (01) ==
LOC: SDC 07:17
PROVIDERS: ATTEND Surgery
DX: C76.1 Malignant neoplasm of thorax (principal); I87.2 Venous insufficiency (chronic) (peripheral); E11.22 Type 2 diabetes mellitus with diabetic chronic kidney disease; N18.30 Chronic kidney disease, stage 3 unspecified; J44.9 Chronic obstructive pulmonary disease, unspecified; Z85.3 Personal history of malignant neoplasm of breast; Z87.891 Personal history of nicotine dependence; Z95.1 Presence of aortocoronary bypass graft; Z79.01 Long term (current) use of anticoagulants; Z79.02 Long term (current) use of antithrombotics/antiplatelets; Z79.84 Long term (current) use of oral hypoglycemic drugs
CPT/HCPCS: 36561; 71045; 76000; 82947; 87081; C1788